=== PATIENT | male | born 1940 | race Caucasian/White ===

== ENCOUNTER 2023-09-30 15:03 | Inpatient (IN) | payer MEDICARE, BC ==
[2023-09-30] MEDS ORDERED: Calcium Chloride 1 GM/10 ML Abboject SYRINGE ONE (15:22)
[2023-09-30] MEDS ORDERED: DOPamine/D5W 400 mg/250 ml PREMIX ONE (15:22)
[2023-09-30 16:06] LABS: #Basophils 0.05 10x3/uL (0.0-0.2); #Monocytes 1.26 10x3/uL (0.11-0.59); #Neutrophils 20.67 10x3/uL (1.40-6.50); %Basophils 0.2 % (0.0-1.0); %Lymphocytes 7.5 % (21.0-51.0); %Monocytes 5.3 % (0.0-10.0); %Neutrophils 86.1 % (42.0-75.0); Hematocrit 35.3 % (42.0-52.0); Hemoglobin 11.7 g/dL (14.0-18.0); Mean Corpuscular HGB CONC 33.1 g/dL (32.0-36.0); Mean Corpuscular Hemoglobin 30.2 pg (27.0-31.0); Mean Platelet Volume 13.6 fL (7.4-10.4); Platelet Count 219 10x3/uL (130-400); RBC Distribution Width 15.9 % (11.5-14.5); Red Blood Cell (RBC) Count 3.88 mill/uL (4.70-6.10); Troponin I Less than 0.010 ng/mL (< 0.028)
[2023-09-30 16:25] LABS: ALT (SGPT) 171 U/L (8-55); AST (SGOT) 146 U/L (5-34); Albumin 3.1 g/dL (3.4-4.8); Alkaline Phosphatase 770 U/L (40-110); Anion Gap 17 mmol/L (10-20); BUN (Urea Nitrogen) 36 mg/dL (8.4-25.7); Bilirubin, Total 4.8 mg/dL (0.2-1.2); CK (CPK) 18 U/L (30-200); Calc. Creatinine Clearance 0 mL/min (70-130); Carbon Dioxide 22 mmol/L (23-31); Chloride 94 mmol/L (98-107); Estimated GFR 37; Globulin 3.3 g/dL (2.4-3.5); Glucose 200 mg/dL (83-110); Lipase 23 U/L (8-78); Potassium 5.9 mmol/L (3.5-5.1); Protein, Total 6.4 g/dL (5.8-8.1); Sodium 127 mmol/L (136-145)
[2023-09-30] MEDS ORDERED: CEFAZOLIN 1 GM VIAL ONE (16:31)
[2023-09-30] MEDS ORDERED: Gentamicin 80 MG/2 ML VIAL ONE (16:31)
[2023-09-30] MEDS ORDERED: CEFAZOLIN 2 GM VIAL ONE (16:31)
[2023-09-30] MEDS ORDERED: LevoFLOXacin D5W 500 mg (100 mL) BAG ONE (16:37)
[2023-09-30] MEDS ORDERED: Clindamycin/D5W 600 mg/50 ml Premix Bag ONE (16:37)
[2023-09-30] MEDS ORDERED: Vancomycin HCl 500 MG VIAL ONE (16:37)
[2023-09-30] MEDS ORDERED: Atropine Sulfate 1 mg/10 ml Syringe ONE (17:32)
[2023-09-30] MEDS ORDERED: Lidocaine 1% (PF) 30 ML VIAL ONE (17:35)
[2023-09-30 19:59] LABS: Lactic Acid 1.4 mmol/L (0.5-2.2)
[2023-09-30] MEDS ORDERED: Acetaminophen/Codeine 30-300mg Tablet PO PRN (22:00)
[2023-09-30] MEDS: Sodium Chloride 0.45% 1,000 ML IV SCH (22:15)
[2023-09-30] MEDS: cloNIDine 0.3mg/24 Hour PATCH TD SCH (22:15)
[2023-10-01 05:25] LABS: #Basophils Less than 0.03 10x3/uL (0.0-0.2); #Eosinphils Less than 0.03 10x3/uL (0.0-0.7); %Basophils 0.1 % (0.0-1.0); %Eosinophils 0.1 % (0.0-10.0); %Lymphocytes 13.6 % (21.0-51.0); %Monocytes 6.1 % (0.0-10.0); %Neutrophils 79.6 % (42.0-75.0); Hematocrit 32.3 % (42.0-52.0); Hemoglobin 10.7 g/dL (14.0-18.0); Mean Corpuscular HGB CONC 33.1 g/dL (32.0-36.0); Mean Corpuscular Volume 93.6 fL (78.0-98.0); Mean Platelet Volume 13.3 fL (7.4-10.4); Platelet Count 196 10x3/uL (130-400); RBC Distribution Width 15.7 % (11.5-14.5); Red Blood Cell (RBC) Count 3.45 mill/uL (4.70-6.10)
[2023-10-01 05:34] LABS: ALT (SGPT) 138 U/L (8-55); AST (SGOT) 101 U/L (5-34); Albumin 2.6 g/dL (3.4-4.8); Alkaline Phosphatase 678 U/L (40-110); Anion Gap 16 mmol/L (10-20); BUN (Urea Nitrogen) 31 mg/dL (8.4-25.7); Bilirubin, Direct 2.3 mg/dL (0.1-0.3); Bilirubin, Total 3.2 mg/dL (0.2-1.2); Calc. Creatinine Clearance 35 mL/min (70-130); Calcium 8.9 mg/dL (7.8-10.44); Carbon Dioxide 19 mmol/L (23-31); Chloride 97 mmol/L (98-107); Estimated GFR 48; Glucose 98 mg/dL (83-110); Potassium 4.6 mmol/L (3.5-5.1); Protein, Total 5.7 g/dL (5.8-8.1); Sodium 127 mmol/L (136-145)
[2023-10-01] MEDS: Sodium Chloride 0.45% 1,000 ML IV SCH (06:28)
[2023-10-01] MEDS: HYDROcodone/Acetaminophen 5/325 mg Tablet PO PRN (08:24)
[2023-10-01] MEDS: Chlorthalidone 25 MG TAB PO SCH (08:25)
[2023-10-01] MEDS: Aspirin Chewable 81 MG TAB PO SCH (08:25)
[2023-10-01] MEDS: Empagliflozin 10 MG TAB PO SCH (08:26)
[2023-10-01] MEDS: NIFEdipine XL 60 MG ER.TAB PO SCH (08:26)
[2023-10-01] MEDS: Losartan 25 MG TAB PO SCH (08:45)
[2023-10-01] MEDS ORDERED: EDARBYCLOR PO SCH (09:00)
[2023-10-01] MEDS: LevoFLOXacin 750 mg/D5W 750 MG in Premix 1 BAG IVPB SCH (16:00)
[2023-10-02] MEDS ORDERED: cloNIDine 0.3mg/24 Hour PATCH TD SCH (10:15)
[2023-10-02 11:05] LABS: Hematocrit 32.4 % (42.0-52.0); Hemoglobin 10.7 g/dL (14.0-18.0); Mean Corpuscular Hemoglobin 30.6 pg (27.0-31.0); Mean Corpuscular Volume 92.6 fL (78.0-98.0); Mean Platelet Volume 13.4 fL (7.4-10.4); Platelet Count 197 10x3/uL (130-400); RBC Distribution Width 15.7 % (11.5-14.5)
[2023-10-02 11:10] LABS: ALT (SGPT) 119 U/L (8-55); AST (SGOT) 90 U/L (5-34); Albumin 2.4 g/dL (3.4-4.8); Alkaline Phosphatase 565 U/L (40-110); Anion Gap 13 mmol/L (10-20); BUN (Urea Nitrogen) 31 mg/dL (8.4-25.7); Bilirubin, Total 3.3 mg/dL (0.2-1.2); Calc. Creatinine Clearance 32 mL/min (70-130); Calcium 8.4 mg/dL (7.8-10.44); Carbon Dioxide 18 mmol/L (23-31); Chloride 97 mmol/L (98-107); Estimated GFR 42; Globulin 2.9 g/dL (2.4-3.5); Glucose 104 mg/dL (83-110); Potassium 4.6 mmol/L (3.5-5.1); Protein, Total 5.3 g/dL (5.8-8.1); Sodium 123 mmol/L (136-145)
[2023-10-02] MEDS: Carvedilol 3.125 MG TAB PO SCH (11:11)
[2023-10-02] MEDS: cloNIDine 0.2mg/24 Hour PATCH TD SCH (11:11)
[2023-10-02 11:39] LABS: Band 1 % (5-11); Lymphocytes 12 % (21-51); Monocytes 11 % (0-10); Neutrophil 76 % (42-75); Platelet Adequacy Comment Platelets Normal; Polychromasia SLIGHT = 2-3 cells HPF (0-2)
[2023-10-03] MEDS: Polyethylene Glycol 3350 17 GM Packet PO PRN (09:43)
[2023-10-03 10:35] LABS: #Basophils 0.03 10x3/uL (0.0-0.2); %Basophils 0.3 % (0.0-1.0); %Eosinophils 1.5 % (0.0-10.0); %Lymphocytes 27.4 % (21.0-51.0); %Neutrophils 58.9 % (42.0-75.0); Hematocrit 35.8 % (42.0-52.0); Mean Corpuscular HGB CONC 33.5 g/dL (32.0-36.0); Mean Corpuscular Hemoglobin 31.1 pg (27.0-31.0); Mean Corpuscular Volume 92.7 fL (78.0-98.0); Platelet Count 215 10x3/uL (130-400); RBC Distribution Width 15.5 % (11.5-14.5); Red Blood Cell (RBC) Count 3.86 mill/uL (4.70-6.10)
[2023-10-03 10:58] LABS: Anion Gap 12 mmol/L (10-20); BUN (Urea Nitrogen) 28 mg/dL (8.4-25.7); Calc. Creatinine Clearance 33 mL/min (70-130); Calcium 8.7 mg/dL (7.8-10.44); Carbon Dioxide 20 mmol/L (23-31); Chloride 96 mmol/L (98-107); Estimated GFR 44; Glucose 128 mg/dL (83-110); Sodium 124 mmol/L (136-145)
[2023-10-03] MEDS: Cefepime 1 GM in Sodium Chloride 0.9% 100 ML IVPB SCH (20:19)
[2023-10-04 04:38] LABS: #Basophils Less than 0.03 10x3/uL (0.0-0.2); %Basophils 0.3 % (0.0-1.0); %Lymphocytes 29.7 % (21.0-51.0); %Monocytes 11.5 % (0.0-10.0); %Neutrophils 55.8 % (42.0-75.0); Hematocrit 29.4 % (42.0-52.0); Hemoglobin 9.9 g/dL (14.0-18.0); Mean Corpuscular HGB CONC 33.7 g/dL (32.0-36.0); Mean Corpuscular Hemoglobin 30.8 pg (27.0-31.0); Mean Corpuscular Volume 91.6 fL (78.0-98.0); Mean Platelet Volume 12.7 fL (7.4-10.4); Platelet Count 178 10x3/uL (130-400); RBC Distribution Width 15.1 % (11.5-14.5); Red Blood Cell (RBC) Count 3.21 mill/uL (4.70-6.10)
[2023-10-04 05:02] LABS: ALT (SGPT) 63 U/L (8-55); AST (SGOT) 29 U/L (5-34); Albumin 2.2 g/dL (3.4-4.8); Alkaline Phosphatase 472 U/L (40-110); Anion Gap 12 mmol/L (10-20); BUN (Urea Nitrogen) 24 mg/dL (8.4-25.7); Bilirubin, Total 1.2 mg/dL (0.2-1.2); Calc. Creatinine Clearance 40 mL/min (70-130); Carbon Dioxide 20 mmol/L (23-31); Chloride 100 mmol/L (98-107); Estimated GFR 55; Globulin 2.7 g/dL (2.4-3.5); Glucose 99 mg/dL (83-110); Potassium 4.2 mmol/L (3.5-5.1); Protein, Total 4.9 g/dL (5.8-8.1); Sodium 128 mmol/L (136-145)
[2023-10-04] MEDS ORDERED: Carvedilol 3.125 MG TAB PO SCH ×2 (09:32→09:45)
[2023-10-04] MEDS: Carvedilol 6.25 MG TAB PO SCH ×2 (09:41→16:43)
[2023-10-04] MEDS: Carvedilol 3.125 MG TAB PO SCH (09:44)
[2023-10-04] MEDS: HYDROcodone/Acetaminophen 5/325 mg Tablet PO PRN (16:49)
[2023-10-04] MEDS: NIFEdipine XL 60 MG ER.TAB PO SCH (21:30)
[2023-10-05 04:50] LABS: #Basophils 0.05 10x3/uL (0.0-0.2); %Basophils 0.5 % (0.0-1.0); %Eosinophils 1.9 % (0.0-10.0); %Lymphocytes 32.1 % (21.0-51.0); %Monocytes 10.5 % (0.0-10.0); %Neutrophils 53.9 % (42.0-75.0); Hematocrit 34.5 % (42.0-52.0); Hemoglobin 11.4 g/dL (14.0-18.0); Mean Corpuscular Volume 93.8 fL (78.0-98.0); Mean Platelet Volume 12.9 fL (7.4-10.4); Platelet Count 217 10x3/uL (130-400); RBC Distribution Width 15.1 % (11.5-14.5); Red Blood Cell (RBC) Count 3.68 mill/uL (4.70-6.10)
[2023-10-05 05:09] LABS: ALT (SGPT) 74 U/L (8-55); AST (SGOT) 46 U/L (5-34); Albumin 2.7 g/dL (3.4-4.8); Alkaline Phosphatase 554 U/L (40-110); Anion Gap 12 mmol/L (10-20); BUN (Urea Nitrogen) 22 mg/dL (8.4-25.7); Bilirubin, Total 1.4 mg/dL (0.2-1.2); Calc. Creatinine Clearance 40 mL/min (70-130); Calcium 8.6 mg/dL (7.8-10.44); Carbon Dioxide 19 mmol/L (23-31); Chloride 103 mmol/L (98-107); Estimated GFR 56; Globulin 3.2 g/dL (2.4-3.5); Glucose 115 mg/dL (83-110); Potassium 4.6 mmol/L (3.5-5.1); Protein, Total 5.9 g/dL (5.8-8.1); Sodium 129 mmol/L (136-145)
[2023-10-05] MEDS: Acetaminophen/Codeine 30-300mg Tablet PO PRN (06:06)
[2023-10-05] MEDS: Aspirin 81 mg Enteric Coated Tablet PO SCH (08:26)
[2023-10-05] MEDS: Albumin 25% 25 GM (100 mL) BOT IVPB SCH ×2 (21:54→23:43)
[2023-10-06 04:47] LABS: #Basophils 0.06 10x3/uL (0.0-0.2); %Basophils 0.7 % (0.0-1.0); %Eosinophils 2.2 % (0.0-10.0); %Lymphocytes 32.8 % (21.0-51.0); %Monocytes 11.9 % (0.0-10.0); %Neutrophils 51.3 % (42.0-75.0); Hematocrit 29.8 % (42.0-52.0); Hemoglobin 9.8 g/dL (14.0-18.0); Mean Corpuscular HGB CONC 32.9 g/dL (32.0-36.0); Mean Corpuscular Hemoglobin 30.1 pg (27.0-31.0); Mean Corpuscular Volume 91.4 fL (78.0-98.0); Mean Platelet Volume 12.8 fL (7.4-10.4); Platelet Count 213 10x3/uL (130-400); RBC Distribution Width 15.2 % (11.5-14.5); Red Blood Cell (RBC) Count 3.26 mill/uL (4.70-6.10)
[2023-10-06] MEDS: Albumin 25% 25 GM (100 mL) BOT IVPB SCH (04:56)
[2023-10-06 05:02] LABS: ALT (SGPT) 54 U/L (8-55); AST (SGOT) 27 U/L (5-34); Albumin 2.9 g/dL (3.4-4.8); Alkaline Phosphatase 426 U/L (40-110); Anion Gap 13 mmol/L (10-20); BUN (Urea Nitrogen) 20 mg/dL (8.4-25.7); Bilirubin, Total 1.1 mg/dL (0.2-1.2); Calc. Creatinine Clearance 44 mL/min (70-130); Calcium 8.7 mg/dL (7.8-10.44); Carbon Dioxide 23 mmol/L (23-31); Chloride 104 mmol/L (98-107); Estimated GFR 62; Globulin 2.6 g/dL (2.4-3.5); Glucose 111 mg/dL (83-110); Potassium 4.6 mmol/L (3.5-5.1); Protein, Total 5.5 g/dL (5.8-8.1); Sodium 135 mmol/L (136-145)
[2023-10-06 06:03] VITALS: BMI 26.9
[2023-10-06 12:49] VITALS: TEMP 98
[2023-10-06 14:53] LABS: Bacteria/HPF None Seen HPF (None Seen); Bilirubin Negative (Negative); Blood, Urine Negative (Negative); Clarity Clear (Clear); Glucose, Urine (Dipstick) Greater than 1000 mg/dL (Negative); Ketone, Urine Negative (Negative); Leukocyte Negative Leu/uL (Negative); Nitrite Negative (Negative); Protein, Urine (Dipstick) 100 mg/dL (Neg-Trace); RBC/HPF 0-3 HPF (0-3); Specific Gravity, Urine 1.019 (1.002-1.036); Squamous Epithelial None Seen HPF (0-3); Urobilinogen Normal mg/dL (Less than 2)
[2023-10-06 16:01] VITALS: BP 178/67
[2023-10-06] MEDS ORDERED: Ciprofloxacin 500 MG TAB PO SCH (20:00)
[2023-10-11] MEDS ORDERED: cloNIDine 0.3mg/24 Hour PATCH TD SCH (09:00)
== END 2023-10-06 16:34 | disposition home or self-care (01) | DRG 243 ==
LOC: ERS 15:03 → SDC/OP 17:06 → 2NO 17:28 → MSONC 10-05 18:18
PROVIDERS: ADMIT Internal Medicine Cardiovascular Disease; ATTEND Internal Medicine
PROC: 0JH606Z Insertion of Pacemaker, Dual Chamber into Chest Subcutaneous Tissue and Fascia, Open Approach (ICD-10-PCS; principal; 2023-09-30)
PROC: 02H63JZ Insertion of Pacemaker Lead into Right Atrium, Percutaneous Approach (ICD-10-PCS; 2023-09-30)
PROC: 02HK3JZ Insertion of Pacemaker Lead into Right Ventricle, Percutaneous Approach (ICD-10-PCS; 2023-09-30)
PROC: 30233J1 Transfusion of Nonautologous Serum Albumin into Peripheral Vein, Percutaneous Approach (ICD-10-PCS; 2023-10-05)
DX: I44.2 Atrioventricular block, complete (principal); E87.1 Hypo-osmolality and hyponatremia; R78.81 Bacteremia; N17.9 Acute kidney failure, unspecified; K80.20 Calculus of gallbladder without cholecystitis without obstruction; I12.9 Hypertensive chronic kidney disease with stage 1 through stage 4 chronic kidney disease, or unspecified chronic kidney disease; N18.9 Chronic kidney disease, unspecified; F32.A Depression, unspecified; K80.50 Calculus of bile duct without cholangitis or cholecystitis without obstruction; E66.01 Morbid (severe) obesity due to excess calories; R74.01 Elevation of levels of liver transaminase levels; B96.1 Klebsiella pneumoniae [K. pneumoniae] as the cause of diseases classified elsewhere; I95.9 Hypotension, unspecified; I25.10 Atherosclerotic heart disease of native coronary artery without angina pectoris; E78.00 Pure hypercholesterolemia, unspecified; I44.7 Left bundle-branch block, unspecified; Z98.49 Cataract extraction status, unspecified eye; Z87.891 Personal history of nicotine dependence
CPT/HCPCS: 33208; 36415; 71045; 76705; 80048; 80053; 80076; 81001; 82550; 83605; 83690; 83880; 83930; 83935; 84300; 84484; 85025; 87040; 87077; 87149; 87186; 93005; 93010; 93306; 96365; 96366; 96375; C1785; C1898; J0461; J0690; J0692; J1265; J1580; J1956; J2001; J3370; J3490; P9047

== ENCOUNTER 2024-01-08 04:08 | Inpatient (IN) | payer MEDICARE, BC ==
[2024-01-08] MEDS ORDERED: fentaNYL 50 mcg/mL 1 mL Vial ONE ×2 (04:47→05:32)
[2024-01-08 05:36] LABS: #Basophils Less than 0.03 10x3/uL (0.0-0.2); #Eosinophils Less than 0.03 10x3/uL (0.0-0.7); %Basophils 0.1 % (0.0-1.0); %Monocytes 0.6 % (0.0-10.0); %Neutrophils 97.1 % (42.0-75.0); Hematocrit 35.1 % (42.0-52.0); Hemoglobin 11.7 g/dL (14.0-18.0); Mean Corpuscular HGB CONC 33.3 g/dL (32.0-36.0); Mean Platelet Volume 12.8 fL (7.4-10.4); Platelet Count 192 10x3/uL (130-400); RBC Distribution Width 14.7 % (11.5-14.5)
[2024-01-08 05:53] LABS: Lipase 327 U/L (8-78)
[2024-01-08 05:56] LABS: ALT (SGPT) 117 U/L (8-55); AST (SGOT) 287 U/L (5-34); Albumin 2.6 g/dL (3.4-4.8); Alkaline Phosphatase 503 U/L (40-110); Anion Gap 17 mmol/L (10-20); BUN (Urea Nitrogen) 46 mg/dL (8.4-25.7); Bilirubin, Total 1.3 mg/dL (0.2-1.2); Calc. Creatinine Clearance 0 mL/min (70-130); Calcium 8.9 mg/dL (7.8-10.44); Carbon Dioxide 18 mmol/L (23-31); Chloride 104 mmol/L (98-107); Estimated GFR 31; Globulin 2.7 g/dL (2.4-3.5); Glucose 159 mg/dL (83-110); Potassium 4.6 mmol/L (3.5-5.1); Protein, Total 5.3 g/dL (5.8-8.1); Sodium 134 mmol/L (136-145)
[2024-01-08] MEDS ORDERED: LevoFLOXacin D5W 500 mg (100 mL) BAG ONE (06:05)
[2024-01-08 06:59] LABS: Troponin I Less than 0.010 ng/mL (< 0.028)
[2024-01-08] MEDS ORDERED: Morphine 2 MG/ML VIAL ONE (07:21)
[2024-01-08 08:02] VITALS: BMI 22.5
[2024-01-08] MEDS ORDERED: Ondansetron PF 4 MG/2 ML Vial IVP PRN (08:20)
[2024-01-08] MEDS ORDERED: Promethazine HCl 25 MG/ML VIAL IM PRN (08:23)
[2024-01-08] MEDS ORDERED: Morphine 4 MG/ML VIAL SLOW IVP PRN (08:25)
[2024-01-08 08:36] LABS: Lactic Acid 4.22 mmol/L (0.5-2.2)
[2024-01-08] MEDS: Lactated Ringer's 1,000 ML IV SCH (08:53)
[2024-01-08 08:58] LABS: CRP,High Sensitivity (Inhouse) 2.69 mg/dL (< or = 0.5)
[2024-01-08 08:59] LABS: Magnesium 2.5 mg/dL (1.6-2.6)
[2024-01-08] MEDS ORDERED: Cefepime 2 GM VIAL ONE (09:06)
[2024-01-08] MEDS ORDERED: Sodium Chloride 0.9% 100 ML ONE (09:06)
[2024-01-08] MEDS ORDERED: Pantoprazole 40 MG VIAL ONE (09:06)
[2024-01-08] MEDS: Cefepime 2 GM in Sodium Chloride 0.9% 100 ML IVPB SCH (09:22)
[2024-01-08] MEDS: Pantoprazole 40 MG VIAL IVP SCH (09:22)
[2024-01-08] MEDS ORDERED: NOREPINEPHRINE 8 MG/250 ML-D5W 250 ML ONE (12:16)
[2024-01-08] MEDS: NOREPINEPHRINE 8 MG/250 ML-D5W 250 ML IVPB SCH (12:28)
[2024-01-08] MEDS: metroNIDAZOLE 500 MG in Premix 1 BAG IVPB SCH (15:28)
[2024-01-08 17:03] LABS: Lactic Acid 1.71 mmol/L (0.5-2.2)
[2024-01-08] MEDS ORDERED: Vancomycin Dose by Levels Sliding Scale (Wt <71) FS SCH (17:15)
[2024-01-08] MEDS: FLU (Fluad Triv) TS24-25 (65UP)/MF59C/PF 45 MCG/0.5 ML Syringe IM ONE (17:45)
[2024-01-08] MEDS: Vancomycin (BATCH) 1.5 GM in Premix 1 BAG IVPB SCH (17:46)
[2024-01-08 18:47] LABS: INR-International Normal Ratio 1.4; Prothrombin Time 17.6 sec (12.0-14.7)
[2024-01-08] MEDS ORDERED: Cefepime 2 GM in Sodium Chloride 0.9% 100 ML IVPB SCH (21:00)
[2024-01-09] MEDS: Amiodarone 150 MG, Admixture Fee 1 EACH in Dextrose 5% in Water 100 ML IVPB SCH (02:31)
[2024-01-09] MEDS: Amiodarone 450 MG in Dextrose 5% in Water 250 ML IVPB SCH (02:31)
[2024-01-09 06:13] LABS: Hematocrit 32.5 % (42.0-52.0); Hemoglobin 10.5 g/dL (14.0-18.0); Mean Corpuscular HGB CONC 32.3 g/dL (32.0-36.0); Mean Corpuscular Hemoglobin 30.3 pg (27.0-31.0); Mean Corpuscular Volume 93.7 fL (78.0-98.0); Mean Platelet Volume 12.7 fL (7.4-10.4); Platelet Count 146 10x3/uL (130-400); RBC Distribution Width 15.5 % (11.5-14.5); Red Blood Cell (RBC) Count 3.47 mill/uL (4.70-6.10)
[2024-01-09 06:26] LABS: Chloride 108 mmol/L (98-107); Sodium 136 mmol/L (136-145)
[2024-01-09 06:27] LABS: Albumin 1.8 g/dL (3.4-4.8); Calcium 7.8 mg/dL (7.8-10.44)
[2024-01-09 06:28] LABS: Globulin 2.5 g/dL (2.4-3.5); Protein, Total 4.3 g/dL (5.8-8.1); Triglycerides 56 mg/dL (Less than 150)
[2024-01-09 06:29] LABS: Anion Gap 15 mmol/L (10-20); Carbon Dioxide 18 mmol/L (23-31)
[2024-01-09] MEDS: Dextrose 50% Abboject 50 ML SYRINGE SLOW IVP SCH ×2 (06:30→16:30)
[2024-01-09 06:31] LABS: Alkaline Phosphatase 622 U/L (40-110); Bilirubin, Total 2.5 mg/dL (0.2-1.2)
[2024-01-09 06:32] LABS: BUN (Urea Nitrogen) 45 mg/dL (8.4-25.7); Calc. Creatinine Clearance 30 mL/min (70-130); Estimated GFR 37
[2024-01-09 06:33] LABS: ALT (SGPT) 136 U/L (8-55); AST (SGOT) 158 U/L (5-34); Cholesterol 106 mg/dl (< 200 Desired)
[2024-01-09 06:34] LABS: Anisocytosis SLIGHT = 6-15 cells HPF (0-5); Band 20 % (5-11); Burr Cells MODERATE= 6-15 cells HPF (0-1); Elliptocytes SLIGHT = 2-5 cells HPF (0-1); HDL Cholesterol 35 mg/dL (>60 Neg Risk); LDL Cholesterol, Calculated 60 mg/dL; Lymphocytes 1 % (21-51); Macrocytosis SLIGHT = 6-15 cells HPF (0-5); Metamyelocyte 7 % (0-0); Monocytes 1 % (0-10); Myelocyte 1 % (0-0); Neutrophil 70 % (42-75); Platelet Adequacy Comment Platelets Normal; Poikilocytosis SLIGHT = 6-15 cells HPF (0-5); Polychromasia SLIGHT = 2-3 cells HPF (0-2); Toxic Granulation SLIGHT; Vacuoles SLIGHT
[2024-01-09 06:35] LABS: Glucose 50 mg/dL (83-110)
[2024-01-09] MEDS: Enoxaparin 30 MG (0.3 mL) SYRINGE SC SCH (08:02)
[2024-01-09] MEDS: Dextrose 50% Abboject 50 ML SYRINGE ONE ×2 (08:03→16:48)
[2024-01-09] MEDS: Cefepime 1 GM in Sodium Chloride 0.9% 100 ML IVPB SCH (08:09)
[2024-01-09] MEDS ORDERED: Vasopressin 20 UNITS/ML VIAL IV SCH (08:30)
[2024-01-09] MEDS: Vasopressin In 0.9 % NaCl 40 UNIT in Premix 1 BAG IV SCH (08:44)
[2024-01-09] MEDS ORDERED: Enoxaparin 40 MG (0.4 mL) SYRINGE SC SCH (09:00)
[2024-01-09] MEDS ORDERED: Etomidate 40 MG (20 mL) VIAL ONE (09:25)
[2024-01-09] MEDS ORDERED: Sodium Chloride 0.9% 500 ML ONE (10:55)
[2024-01-09] MEDS ORDERED: Iopamidol 100 ML FS ONE (10:55)
[2024-01-09] MEDS ORDERED: Lidocaine 1% w/Epinephrine 1:100K 20 ML VIAL ONE (11:04)
[2024-01-09] MEDS ORDERED: Sodium Bicarbonate 0.5 MEQ/ML SDV 10 ML ONE (11:06)
[2024-01-09 13:43] VITALS: BMI 27.5
[2024-01-09 14:48] LABS: RBC Count-Automated (BF) 3605 /cu.mm; WBC/Nucleated-Auto (BF) 1415 /cu.mm
[2024-01-09 14:50] LABS: Clarity Cloudy/Turbid (Clear); Tube # EDTA
[2024-01-09 14:51] LABS: BF Color Red
[2024-01-09] MEDS: Dextrose 5%-Lactated Ringers 1,000 ML IV SCH (16:48)
[2024-01-09 17:37] LABS: Troponin I 6.945 ng/mL (< 0.028)
[2024-01-09 19:19] LABS: Vancomycin, Trough 10.7 ug/mL
[2024-01-09] MEDS: Morphine 2 MG/ML VIAL SLOW IVP PRN (20:05)
[2024-01-09] MEDS: Vancomycin HCl 750 MG in Sodium Chloride 0.9% 250 ML 250 ML IVPB SCH (20:13)
[2024-01-09 20:39] LABS: Base Excess (BEa) -13.3 mEq/L (-2.0 to +3.0); CO2 Tension 27.8 mmHg (35.0-45.0); Calcium, Ionized (arterial) 1.11 mmol/L (1.12-1.30); Carboxyhemoglobin (COHb) 0.5 gm% (0.0-3.0); Hematocrit-ABG 35 % (42.0-52.0); Hemoglobin (Hb) 11.8 g/dL (14.0-18.0); Potassium - ABG Lab 5.21 mmol/L (3.70-5.30); pH, Arterial 7.262 (7.35-7.45)
[2024-01-09 20:44] LABS: Actual Bicarbonate (HCO3a) 12.3 mEq/L (22-28); Puncture Site Left Brachial artery
[2024-01-09] MEDS: Etomidate 40 MG (20 mL) VIAL IVP SCH (21:18)
[2024-01-09] MEDS ORDERED: Ventilator Sedation Protocol 1 EACH FS SCH (21:23)
[2024-01-09] MEDS ORDERED: EPINEPHrine 4 MG in Dextrose 5% in Water 250 ML IV SCH (21:30)
[2024-01-09] MEDS ORDERED: EPINEPHrine 4 MG in Dextrose 5% in Water 250 ML IVP SCH (21:30)
[2024-01-09] MEDS ORDERED: Fentanyl BOLUS 250 ML IVPB PRN (21:45)
[2024-01-09] MEDS ORDERED: DISCONTINUE PREVIOUS NARCOTIC PAIN MEDICATIONS AND BENZODIAZEPINES FS SCH (21:45)
[2024-01-09] MEDS ORDERED: Morphine 2 MG/ML VIAL SLOW IVP PRN (21:45)
[2024-01-09] MEDS ORDERED: Propofol 1,000 MG/100 ML VIAL IV PRN (21:45)
[2024-01-09] MEDS ORDERED: Propofol BOLUS 1,000 MG/100 ML VIAL IV PRN (21:45)
[2024-01-09 22:17] LABS: Base Excess (BEa) -15.1 mEq/L (-2.0 to +3.0); Calcium, Ionized (arterial) 1.07 mmol/L (1.12-1.30); Carboxyhemoglobin (COHb) 0.2 gm% (0.0-3.0); Hematocrit-ABG 32 % (42.0-52.0); O2 Tension (PaO2), arterial 128.6 mmHg (> 60.0); Potassium - ABG Lab 5.25 mmol/L (3.70-5.30); pH, Arterial 7.258 (7.35-7.45)
[2024-01-09 22:19] LABS: Actual Bicarbonate (HCO3a) 10.3 mEq/L (22-28); CO2 Tension 23.6 mmHg (35.0-45.0); Puncture Site Arterial Line
[2024-01-09] MEDS: Albumin 25% 25 GM (100 mL) BOT IVPB SCH (22:49)
[2024-01-09] MEDS: Sodium Bicarbonate 140 MEQ in Dextrose 5% in Water 1,000 ML IV SCH (22:59)
[2024-01-09] MEDS: EPINEPHrine 1 MG/ML VIAL ONE (23:03)
[2024-01-10] MEDS: Fentanyl CADD 100 ML IV SCH (00:18)
[2024-01-10] MEDS: Albumin 25% 100 ML ONE (00:21)
[2024-01-10] MEDS: Sodium Bicarbonate 140 MEQ in Dextrose 5% in Water 1,000 ML IV SCH (00:39)
[2024-01-10 04:36] LABS: Hematocrit 31.5 % (42.0-52.0); Hemoglobin 10.2 g/dL (14.0-18.0); Mean Corpuscular HGB CONC 32.4 g/dL (32.0-36.0); Mean Corpuscular Hemoglobin 30.6 pg (27.0-31.0); Mean Corpuscular Volume 94.6 fL (78.0-98.0); Mean Platelet Volume 13.5 fL (7.4-10.4); Platelet Count 100 10x3/uL (130-400); RBC Distribution Width 15.9 % (11.5-14.5); Red Blood Cell (RBC) Count 3.33 mill/uL (4.70-6.10)
[2024-01-10 04:37] LABS: ALT (SGPT) 222 U/L (8-55); AST (SGOT) 407 U/L (5-34); Albumin 2.2 g/dL (3.4-4.8); Alkaline Phosphatase 406 U/L (40-110); Anion Gap 20 mmol/L (10-20); BUN (Urea Nitrogen) 53 mg/dL (8.4-25.7); Bilirubin, Total 3.4 mg/dL (0.2-1.2); Calc. Creatinine Clearance 23 mL/min (70-130); Calcium 7.6 mg/dL (7.8-10.44); Carbon Dioxide 13 mmol/L (23-31); Chloride 103 mmol/L (98-107); Estimated GFR 27; Globulin 2.3 g/dL (2.4-3.5); Glucose 154 mg/dL (83-110); Potassium 5.7 mmol/L (3.5-5.1); Protein, Total 4.5 g/dL (5.8-8.1); Sodium 130 mmol/L (136-145)
[2024-01-10 06:38] LABS: Anisocytosis SLIGHT = 6-15 cells HPF (0-5); Band 28 % (5-11); Burr Cells MODERATE= 6-15 cells HPF (0-1); Elliptocytes SLIGHT = 2-5 cells HPF (0-1); Large Platelets 2.7 % (0-5); Lymphocytes 1 % (21-51); Metamyelocyte 9 % (0-0); Monocytes 2 % (0-10); Myelocyte 2 % (0-0); Neutrophil 58 % (42-75); Platelet Adequacy Comment Platelets Decreased; Poikilocytosis SLIGHT = 6-15 cells HPF (0-5); Polychromasia SLIGHT = 2-3 cells HPF (0-2); Toxic Granulation SLIGHT; Vacuoles MODERATE
[2024-01-10 06:46] LABS: Reflex for Review?? YES
[2024-01-10 07:13] LABS: Troponin I 10.918 ng/mL (< 0.028)
[2024-01-10 08:07] LABS: Base Excess (BEa) -11.9 mEq/L (-2.0 to +3.0); Calcium, Ionized (arterial) 1.01 mmol/L (1.12-1.30); Carboxyhemoglobin (COHb) 0.5 gm% (0.0-3.0); Hematocrit-ABG 38 % (42.0-52.0); Hemoglobin (Hb) 12.8 g/dL (14.0-18.0); O2 Tension (PaO2), arterial 190.9 mmHg (> 60.0); Potassium - ABG Lab 5.47 mmol/L (3.70-5.30); pH, Arterial 7.345 (7.35-7.45)
[2024-01-10 08:11] LABS: Puncture Site Arterial Line
[2024-01-10] MEDS: DOBUTamine 500 mg/250 ml 250 ML IVPB SCH (08:48)
[2024-01-10] MEDS: Cefepime 1 GM in Sodium Chloride 0.9% 100 ML IVPB SCH (09:24)
[2024-01-10] MEDS: Acetaminophen 325 MG TAB PO PRN (16:11)
[2024-01-10 16:52] LABS: Potassium 5.3 mmol/L (3.5-5.1)
[2024-01-10 22:06] VITALS: BP 116/45
[2024-01-10] MEDS: Vancomycin HCl 250 MG in Sodium Chloride 0.9% 100 ML IV SCH (22:06)
[2024-01-10] MEDS: Lorazepam 2 MG/ML VIAL SLOW IVP PRN (22:17)
[2024-01-11 04:47] LABS: Hematocrit 27.7 % (42.0-52.0); Hemoglobin 9.8 g/dL (14.0-18.0); Mean Corpuscular HGB CONC 35.4 g/dL (32.0-36.0); Mean Corpuscular Volume 84.7 fL (78.0-98.0); Platelet Count 52 10x3/uL (130-400); RBC Distribution Width 15.2 % (11.5-14.5); Red Blood Cell (RBC) Count 3.27 mill/uL (4.70-6.10)
[2024-01-11 05:06] LABS: ALT (SGPT) 190 U/L (8-55); AST (SGOT) 256 U/L (5-34); Albumin 1.6 g/dL (3.4-4.8); Alkaline Phosphatase 381 U/L (40-110); Anion Gap 16 mmol/L (10-20); BUN (Urea Nitrogen) 60 mg/dL (8.4-25.7); Bilirubin, Total 3.2 mg/dL (0.2-1.2); Calc. Creatinine Clearance 20 mL/min (70-130); Calcium 6.6 mg/dL (7.8-10.44); Carbon Dioxide 17 mmol/L (23-31); Chloride 98 mmol/L (98-107); Estimated GFR 22; Globulin 2.2 g/dL (2.4-3.5); Glucose 190 mg/dL (83-110); Potassium 4.9 mmol/L (3.5-5.1); Protein, Total 3.8 g/dL (5.8-8.1); Sodium 126 mmol/L (136-145)
[2024-01-11 05:18] LABS: Anisocytosis SLIGHT = 6-15 cells HPF (0-5); Band 21 % (5-11); Elliptocytes SLIGHT = 2-5 cells HPF (0-1); Hypochromia SLIGHT = 6-15 cells HPF (0-5); Lymphocytes 3 % (21-51); Metamyelocyte 1 % (0-0); Microcytosis SLIGHT = 6-15 cells HPF (0-5); Neutrophil 74 % (42-75); Platelet Adequacy Comment Significant Decrease; Polychromasia SLIGHT = 2-3 cells HPF (0-2); Reactive Lymphocytes 1 % (0-10); Toxic Granulation SLIGHT; Vacuoles SLIGHT
[2024-01-11 07:50] LABS: Actual Bicarbonate (HCO3a) 16.8 mEq/L (22-28); Base Excess (BEa) -3.1 mEq/L (-2.0 to +3.0); Calcium, Ionized (arterial) 0.92 mmol/L (1.12-1.30); O2 Tension (PaO2), arterial 127.5 mmHg (> 60.0); Potassium - ABG Lab 4.71 mmol/L (3.70-5.30)
[2024-01-11 07:51] LABS: CO2 Tension 20.1 mmHg (35.0-45.0); Puncture Site Arterial Line
[2024-01-11 07:52] LABS: ALV-art Gradient 203.875 mmHg (0-20)
[2024-01-11] MEDS: Furosemide 40 MG (4 mL) VIAL SLOW IVP SCH (09:40)
[2024-01-11] MEDS: Albumin 25% 25 GM (100 mL) BOT IVPB SCH (12:01)
[2024-01-11] MEDS: DOBUTamine 500 mg/250 ml 250 ML IVPB SCH (18:20)
[2024-01-12 00:22] LABS: Vancomycin, Trough 15.2 ug/mL
[2024-01-12] MEDS: Vancomycin HCl 500 MG in Sodium Chloride 0.9% 100 ML IV SCH (01:40)
[2024-01-12 04:48] LABS: INR-International Normal Ratio 1.7; Prothrombin Time 20.2 sec (12.0-14.7)
[2024-01-12 04:53] LABS: ALT (SGPT) 159 U/L (8-55); AST (SGOT) 229 U/L (5-34); Albumin 2.9 g/dL (3.4-4.8); Alkaline Phosphatase 405 U/L (40-110); Anion Gap 17 mmol/L (10-20); BUN (Urea Nitrogen) 71 mg/dL (8.4-25.7); Calc. Creatinine Clearance 18 mL/min (70-130); Calcium 6.9 mg/dL (7.8-10.44); Carbon Dioxide 18 mmol/L (23-31); Chloride 96 mmol/L (98-107); Estimated GFR 19; Globulin 1.9 g/dL (2.4-3.5); Glucose 141 mg/dL (83-110); Lipase 19 U/L (8-78); Protein, Total 4.8 g/dL (5.8-8.1); Sodium 126 mmol/L (136-145)
[2024-01-12 06:27] LABS: Hematocrit 27.3 % (42.0-52.0); Hemoglobin 9.4 g/dL (14.0-18.0); Mean Corpuscular HGB CONC 34.4 g/dL (32.0-36.0); Mean Corpuscular Hemoglobin 29.8 pg (27.0-31.0); Mean Corpuscular Volume 86.7 fL (78.0-98.0); Platelet Count 37 10x3/uL (130-400); RBC Distribution Width 15.6 % (11.5-14.5); Red Blood Cell (RBC) Count 3.15 mill/uL (4.70-6.10)
[2024-01-12 06:57] LABS: Anisocytosis SLIGHT = 6-15 cells HPF (0-5); Band 4 % (5-11); Lymphocytes 3 % (21-51); Macrocytosis SLIGHT = 6-15 cells HPF (0-5); Metamyelocyte 1 % (0-0); Neutrophil 92 % (42-75); Platelet Adequacy Comment Platelets Decreased; Polychromasia SLIGHT = 2-3 cells HPF (0-2)
[2024-01-12 07:23] LABS: Actual Bicarbonate (HCO3a) 15.3 mEq/L (22-28); Base Excess (BEa) -9.1 mEq/L (-2.0 to +3.0); CO2 Tension 28.3 mmHg (35.0-45.0); Calcium, Ionized (arterial) 0.91 mmol/L (1.12-1.30); Carboxyhemoglobin (COHb) 1.1 gm% (0.0-3.0); Hematocrit-ABG 28 % (42.0-52.0); Hemoglobin (Hb) 9.4 g/dL (14.0-18.0); O2 Tension (PaO2), arterial 134.5 mmHg (> 60.0); Potassium - ABG Lab 4.88 mmol/L (3.70-5.30); pH, Arterial 7.352 (7.35-7.45)
[2024-01-12 07:27] LABS: ALV-art Gradient 543.125 mmHg (0-20); Puncture Site Arterial Line
[2024-01-12] MEDS: Morphine 4 MG/ML VIAL SLOW IVP PRN (08:54)
[2024-01-12] MEDS: Lorazepam 2 MG/ML VIAL SLOW IVP PRN (08:55)
[2024-01-12] MEDS: Glycopyrrolate 0.2 MG/ML 5 ML SYRINGE SLOW IVP PRN (08:55)
[2024-01-12 10:27] VITALS: TEMP 100.5
[2024-01-15 08:56] LABS: Actual Bicarbonate (HCO3a) 11.7 mEq/L (22-28)
== END 2024-01-12 09:20 | disposition expired | DRG 871 ==
LOC: ERS 04:08 → ERHOLD 07:50 → CCU 07:50
PROVIDERS: ADMIT Hospitalist; ATTEND Internal Medicine
PROC: 02HV33Z Insertion of Infusion Device into Superior Vena Cava, Percutaneous Approach (ICD-10-PCS; principal; 2024-01-08)
PROC: B5181ZA Fluoroscopy of Superior Vena Cava using Low Osmolar Contrast, Guidance (ICD-10-PCS; 2024-01-08)
PROC: B548ZZA Ultrasonography of Superior Vena Cava, Guidance (ICD-10-PCS; 2024-01-08)
PROC: 3E03329 Introduction of Other Anti-infective into Peripheral Vein, Percutaneous Approach (ICD-10-PCS; 2024-01-08)
PROC: 3E033XZ Introduction of Vasopressor into Peripheral Vein, Percutaneous Approach (ICD-10-PCS; 2024-01-08)
PROC: 30233J1 Transfusion of Nonautologous Serum Albumin into Peripheral Vein, Percutaneous Approach (ICD-10-PCS; 2024-01-08)
PROC: 3E043XZ Introduction of Vasopressor into Central Vein, Percutaneous Approach (ICD-10-PCS; 2024-01-08)
PROC: 0F9530Z Drainage of Right Hepatic Duct with Drainage Device, Percutaneous Approach (ICD-10-PCS; 2024-01-09)
PROC: 04HY32Z Insertion of Monitoring Device into Lower Artery, Percutaneous Approach (ICD-10-PCS; 2024-01-09)
PROC: 4A133B1 Monitoring of Arterial Pressure, Peripheral, Percutaneous Approach (ICD-10-PCS; 2024-01-09)
PROC: 4A133J1 Monitoring of Arterial Pulse, Peripheral, Percutaneous Approach (ICD-10-PCS; 2024-01-09)
PROC: 4A133R1 Monitoring of Arterial Saturation, Peripheral, Percutaneous Approach (ICD-10-PCS; 2024-01-09)
PROC: 5A0935A Assistance with Respiratory Ventilation, Less than 24 Consecutive Hours, High Flow/Velocity Cannula (ICD-10-PCS; 2024-01-09)
PROC: BF111ZZ Fluoroscopy of Biliary and Pancreatic Ducts using Low Osmolar Contrast (ICD-10-PCS; 2024-01-09)
PROC: 5A1945Z Respiratory Ventilation, 24-96 Consecutive Hours (ICD-10-PCS; 2024-01-10)
PROC: 0BH17EZ Insertion of Endotracheal Airway into Trachea, Via Natural or Artificial Opening (ICD-10-PCS; 2024-01-10)
DX: A40.8 Other streptococcal sepsis (principal); I21.4 Non-ST elevation (NSTEMI) myocardial infarction; J96.00 Acute respiratory failure, unspecified whether with hypoxia or hypercapnia; K85.10 Biliary acute pancreatitis without necrosis or infection; R65.21 Severe sepsis with septic shock; I44.2 Atrioventricular block, complete; J90 Pleural effusion, not elsewhere classified; N17.9 Acute kidney failure, unspecified; B37.81 Candidal esophagitis; K80.31 Calculus of bile duct with cholangitis, unspecified, with obstruction; E87.4 Mixed disorder of acid-base balance; E87.1 Hypo-osmolality and hyponatremia; K80.43 Calculus of bile duct with acute cholecystitis with obstruction; I42.9 Cardiomyopathy, unspecified; A41.51 Sepsis due to Escherichia coli [E. coli]; E78.5 Hyperlipidemia, unspecified; I25.10 Atherosclerotic heart disease of native coronary artery without angina pectoris; K44.9 Diaphragmatic hernia without obstruction or gangrene; R30.0 Dysuria; Z51.5 Encounter for palliative care; Z66 Do not resuscitate; N40.1 Benign prostatic hyperplasia with lower urinary tract symptoms; I12.9 Hypertensive chronic kidney disease with stage 1 through stage 4 chronic kidney disease, or unspecified chronic kidney disease; K82.8 Other specified diseases of gallbladder; K83.8 Other specified diseases of biliary tract; F32.A Depression, unspecified; N18.30 Chronic kidney disease, stage 3 unspecified; N32.3 Diverticulum of bladder; R74.01 Elevation of levels of liver transaminase levels; E80.6 Other disorders of bilirubin metabolism; I95.9 Hypotension, unspecified; Z87.891 Personal history of nicotine dependence; E87.5 Hyperkalemia; T68.XXXA Hypothermia, initial encounter; K62.89 Other specified diseases of anus and rectum; E66.9 Obesity, unspecified; K72.90 Hepatic failure, unspecified without coma; D63.1 Anemia in chronic kidney disease; I08.3 Combined rheumatic disorders of mitral, aortic and tricuspid valves; R73.9 Hyperglycemia, unspecified; Z95.0 Presence of cardiac pacemaker; Z88.0 Allergy status to penicillin; Z98.41 Cataract extraction status, right eye; Z98.42 Cataract extraction status, left eye; Z98.84 Bariatric surgery status; Z79.82 Long term (current) use of aspirin; Z79.899 Other long term (current) drug therapy; Z93.1 Gastrostomy status; Z95.5 Presence of coronary angioplasty implant and graft
CPT/HCPCS: 36415; 36416; 36556; 36600; 47534; 71045; 74176; 76942; 80053; 80061; 80202; 82805; 83605; 83615; 83690; 83735; 83880; 84145; 84484; 85025; 85060; 85610; 85730; 86141; 87040; 87070; 87077; 87149; 87186; 87205; 89051; 93005; 93010; 93306; 94002; 94003; 96361; 96365; 96366; 96375; C1729; C1769; C1887; C1894; J0282; J0692; J1250; J1650; J1940; J1956; J2060; J2272; J2470; J3010; J3370; J7030; J7050; J7070; J7120; J7999; P9047; Q9967